=== PATIENT | male | born 1980 | race Two or more races ===

== ENCOUNTER 2024-06-08 15:08 | Emergency (ER) | payer OTHER ==
[~2024-06-08] VITALS: Ht 177.8 cm; Wt 77.1 kg
[2024-06-08 15:12] VITALS: BP 128/79; TEMP 98.1
[2024-06-08 16:13] VITALS: O2SAT 98
== END 2024-06-08 16:14 | disposition home or self-care (01) ==
LOC: ER 15:32
DX: R20.2 Paresthesia of skin (principal); F41.9 Anxiety disorder, unspecified; Z87.09 Personal history of other diseases of the respiratory system